=== PATIENT | female | born 1975 | race Caucasian/White ===

== ENCOUNTER 2017-02-09 06:12 | Day surgery (SDC) | payer OTHER ==
[2017-02-08 15:14] VITALS: BMI 24.8
[2017-02-09] VITALS (8 sets, daily range): BP systolic 108–121; BP diastolic 56–75; PULSE 87–99; RESP 14–20; Ht 157.5 cm; Wt 60.9 kg
[~2017-02-09] VITALS: Ht 157.5 cm; Wt 60.9 kg
[~2017-02-09 06:12] MED LIST: AZIT250T94 PO; CETI10CA PO; IBUP-1542 PO; LORA-444 PO; NAPR-260 PO; NAPR-688 PO; TRAM50TA2 PO
[2017-02-09] MEDS ORDERED: SEVOFLURANE 15 MIN ONE (07:00)
--- NOTE | 2017-02-09 07:41 | HPN ---
Date/Time of Note Date/Time of Note DATE: 02/09/17 TIME: 07:41 Interval H&P Admission Note Pt. seen H&P reviewed: No system changes JOSEPH SAINI MD February 09, 2017 07:41
[2017-02-09] MEDS ORDERED: LIDOCAINE 1% (MDV) 20 ML INJ ONE (07:57)
[2017-02-09] MEDS ORDERED: FENTAnyl 50 MCG/ML VIAL ONE (07:57)
[2017-02-09] MEDS ORDERED: PROPOFOL 20 ML ONE (07:57)
[2017-02-09] MEDS ORDERED: MIDAZOLAM 1 MG/ML 2 ML INJ ONE (07:57)
[2017-02-09] MEDS ORDERED: FAMOTIDINE 20 MG INJ ONE (08:17)
[2017-02-09] MEDS ORDERED: ONDANSETRON 4 MG INJ ONE (08:17)
[2017-02-09] MEDS ORDERED: DEXAMETHASONE 4 MG/ML 1 ML INJ ONE (08:17)
[2017-02-09] MEDS ORDERED: HYDROmorphONE (0.2 MG/ML) 10ML SYG IV PRN ×2 (09:00)
[2017-02-09] MEDS ORDERED: LORAZEPAM 2 MG INJ IV PRN (09:00)
[2017-02-09] MEDS ORDERED: DIPHENHYDRAMINE 50 MG INJ IV PRN (09:00)
[2017-02-09] MEDS ORDERED: MEPERIDINE 25 MG INJ IV PRN (09:00)
[2017-02-09] MEDS ORDERED: PROCHLORPERAZINE 10 MG INJ IV PRN (09:00)
--- NOTE | 2017-02-09 09:17 | PD.PPDC ---
[employer] Discharge Instruction Diagnosis Final Diagnosis: uterine fibroid, menomtrorrhagia Condition Patient Condition: Stable Diet Diet: Resume Regular Diet Activity/Restrictions Activity: January Shower Restrictions: No Sexual Activity Nothing in the Vagina No [place] No Tampons, douche Follow-up Follow-up with Physician: Week/Weeks Return to clinic for [employer] Instructions: Fever greater than 101 Chills Worsening abdominal pain Excessive Vaginal Bleeding More than 2 pads per hour Unable to tolerate diet JOSEPH SAINI MD February 09, 2017 09:16
--- NOTE | 2017-02-09 09:57 | OPR ---
DATE OF OPERATION: 02/09/2017 PREOPERATIVE DIAGNOSIS: Uterine fibroid and menometrorrhagia. POSTOPERATIVE DIAGNOSIS: See pathological report. OPERATION PERFORMED: Hysteroscopic dilation and curettage. ANESTHESIOLOGIST: Lacho Weldon MD SURGEON: Yoshi Taylor MD AUTOMATION QA TESTER: ____ ESTIMATED BLOOD LOSS: Negligible. DESCRIPTION OF PROCEDURE: Under the proper induction of general anesthesia, the patient was placed in dorsal lithotomy position. Perineal area and vagina wall was prepped and draped in usual aseptic manner. On inspection external genitalia revealed no gross abnormality. Bimanual examination, citlalli gudelia felt to be approximately 10 weeks of gestational size, firm in consistency. There was no palpab le adnexal pathology. Weighted speculum introduced into the vagina. Cervix identified which was fi sh-mouthed appearing and clear. The anterior lip of the cervix was grasped, closed the os because o f the bulkiness on the anterior lip. Then, patient was placed in the Trendelenburg position. Endoc ervical curettage was done with Kevorkian forceps and scanty tissue which was sent to pathology. Ca vity was sounded, which was 10 cm in depth, also was dilated up to 6 and size 5.5 hysteroscope was i ntroduced and inflow was turned on to distend the cavity. Once the proper location of the hysterosc ope visualization obtained. Both ostium was seen clearly except that there was small fibroid-appear ing tissue which was seen at the beginning but somehow it disappeared. The fundus was located and t he resectoscope which was inserted into intrauterine cavity and work on the upper right ostium area where small fibroid or poly-looking tissue was visualized. After the hard resectoscope was removed and soft resectoscope was introduced and then entire cavity was curetted in usual fashion. The tiss ue was retrieved into the container and fundus was clear and both ostium clearly visualized. After the satisfactory procedure was done the entire instruments removed after the few pictures taken. F luid deficit was ____ mL. Procedure was completed. All the instruments removed from the operative field. Patient withstood procedure and was sent to recovery in stable condition. Dictated By: YOSHI MICHAELS/KATHLEEN Conf#: [id number] DID#: [id number]
== END 2017-02-09 11:04 | disposition home or self-care (01) ==
LOC: SDS 06:12
PROVIDERS: ATTEND Obstetrics & Gynecology
DX: N92.1 Excessive and frequent menstruation with irregular cycle (principal); D25.9 Leiomyoma of uterus, unspecified
CPT/HCPCS: 58558; 88305; J1100; J2250; J2405; J3010; Z7512; Z7610

== ENCOUNTER 2019-01-06 07:19 | Emergency (ER) | payer OTHER ==
[~2019-01-06] VITALS: Wt 63.0 kg
[~2019-01-06 07:19] MED LIST changes: -AZIT250T94 PO; -CETI10CA PO; -IBUP-1542 PO; -NAPR-260 PO; -NAPR-688 PO; -TRAM50TA2 PO
[2019-01-06 07:21] VITALS: BP 128/69; PULSE 91; RESP 18
[2019-01-06] MEDS ORDERED: TRAM50TA2 PO (08:40)
[2019-01-06] MEDS ORDERED: NAPR-985 PO (08:40)
[2019-01-06] MEDS ORDERED: ACET1TAB40 PO (08:48)
--- NOTE | 2019-01-06 09:07 | ERD ---
ER Documentation Chief Complaint Chief Complaint R ACHILLES HEEL PAIN FOR THE PAST WEEK. NO DEFORMITY NOTED. NO REDNESS HPI 43-year-old female presenting with right heel pain. She states she has pain along the Achilles tendon and it hurts with pressing down. She denies any numbness or tingling and denies any recent injuries. States is been going for the last 3 weeks. Denies medical problems. Surgical history tubal ligation. Social history denies ROS All systems reviewed and are negative except as per history of present illness. Medications Home Meds Active Scripts Acetaminophen with Codeine (Acetaminophen-Cod #3 Tablet) 1 Each Tablet, 1 TAB PO Q6H PRN for PAIN, #7 TAB Prov:JOHNNIE SCHULTE PA-C 01/06/19 Naproxen* (Naprosyn*) 500 Mg Tablet, 500 MG PO BID PRN for PAIN AND/OR INFLAMMATION, #30 TAB Prov:JOHNNIE SCHULTE PA-C 01/06/19 Reported Medications Lorazepam* (Ativan*) 2 Mg Tablet, 2 MG PO HS, TAB 06/12/14 Allergies Allergies: Coded Allergies: tramadol (Verified Allergy, Severe, hallucinations/gi upset, 01/06/19) hydrocodone (Verified Allergy, Intermediate, GI UPSET/HALLUCINATION, 01/06/19) Penicillins (Verified Allergy, Unknown, RASH/HIVES, 01/06/19) oxycodone (Verified Adverse Reaction, Intermediate, HALLUCINATION, 01/06/19) PMhx/Soc History of Surgery: Yes (BTL) Anesthesia Reaction: No Hx Neurological Disorder: No Hx Respiratory Disorders: Yes (ASTHMA) Hx Cardiac Disorders: No Hx Psychiatric Problems: No Hx Miscellaneous Medical Probl: No Hx Alcohol Use: No Hx Substance Use: No Hx Tobacco Use: No Smoking Status: Never smoker FmHx Family History: No diabetes, No coronary disease, No other Physical Exam Vitals Vital Signs Date Temp Pulse Resp B/P (MAP) Pulse Ox O2 O2 Flow FiO2 Time Delivery Rate 01/06/19 97.3 91 18 128/69 98 07:21 (88) Physical Exam GENERAL: The patient is well-appearing, well-nourished, in no acute distress CHEST: Clear to auscultation bilaterally. There are no rales, wheezes or rhonchi. HEART: Regular rate and rhythm. No murmurs, clicks, rubs or gallops. EXTREMITIES: Equal pulses bilaterally. There is no peripheral clubbing, cyanosis or edema. No focal swelling or erythema. Full range of motion. Grossly neurovascularly intact. TTP over achilles heel. NEUROLOGIC: Alert and oriented. Cranial nerves II through XII intact. Motor strength in all 4 extremities with 5 out of 5 strength. Sensation grossly intact. SKIN: There is no apparent rash or petechiae. The skin is warm and dry. Procedures/MDM vDIAGNOSTIC IMAGING REPORT Patient: CARLOS SERRANO : 1975 Age: 43 Sex: F MR #: [id number] DOS: 01/06/19 0737 Ordering MD: GONZALEZ SCHULTE PA-C Location: [facility] Room/Bed: PROCEDURE: XR Ankle. CLINICAL INDICATION: Pain TECHNIQUE: AP, oblique and lateral views of the right ankle were obtained. COMPARISON: None. FINDINGS: There are no fractures or destructive lesions. No joint dislocation or malalignment. The mortise appears intact. Soft tissues are unremarkable. IMPRESSION: Unremarkable right ankle exam. MDM: 43-year-old female presenting with pain to the right heel. Patient has pain along the Achilles but has normal flexion and extension. Strength is 5 out of 5. I believe patient likely has Achilles tendinitis versus possible bursitis. I have low suspicion for vascular or neuro deficit. I have low suspicion for infectious etiology. Patient is discharged with strict ER precautions and told to follow-up with primary care within 1-2 days for close evaluation. All questions answered at discharge Departure Diagnosis: Primary Impression: Tendonitis Condition: Stable Patient Instructions: Tendonitis Additional Instructions: FOLLOW UP WITH YOUR PRIMARY CARE PHYSICIAN TOMORROW.Return to this facility if you are not improving as expected. JOHNNIE SCHULTE PA-C Jan 06, 2019 09:07
== END 2019-01-06 08:54 | disposition home or self-care (01) ==
LOC: FTE 07:19
DX: M76.61 Achilles tendinitis, right leg (principal); J45.909 Unspecified asthma, uncomplicated
CPT/HCPCS: 73610; Z7502